=== PATIENT | male | born 1970 | race Caucasian/White ===

== ENCOUNTER 2017-10-12 08:00 | Inpatient (IN) | payer OTHER ==
[2017-10-13 10:04] VITALS: BMI 41.0
--- NOTE | 2017-10-14 10:29 | HP ---
Admitting History and Physical - Admission Chief Complaint: Morbid obesity History Source: Patient Limitations to Obtaining History: No Limitations - Smoking History Smoking history: Former smoker Have you smoked in the past 12 months: No If you are a former smoker, when did you quit?: 15yrs - Alcohol/Substance Use Hx Alcohol Use: Yes (wine occs) Home Medications - Allergies Allergies/Adverse Reactions: Allergies Allergy/AdvReac Type Severity Reaction Status Date / Time No Known Drug Allergies Allergy Verified 10/14/17 09:47 - Home Medications Home Medications: Ambulatory Orders NK [No Known Home Medication] 10/13/17 Family Disease History - Family Disease History Family History: Denies Review of Systems - Review of Systems Constitutional: denies: Chills, Fever HENT: reports: No Symptoms Neck: reports: No Symptoms Cardiovascular: reports: No Symptoms Respiratory: reports: No Symptoms Gastrointestinal: reports: No Symptoms Neurological: reports: No Symptoms Pain Intensity: 0 Physical Examination Vital Signs: Vital Signs Temperature 97.7 F 10/14/17 09:46 Pulse Rate 72 10/14/17 09:46 Respiratory Rate 16 10/14/17 09:46 Blood Pressure 142/74 10/14/17 09:46 O2 Sat by Pulse Oximetry (%) 98 10/14/17 09:45 Constitutional: Yes: Well Nourished HENT: Yes: WNL Neck: Yes: WNL Respiratory: Yes: Regular Gastrointestinal: Yes: Soft, Abdomen, Obese Extremities: Yes: WNL Neurological: Yes: Alert, Oriented Problem List - Problems (1) Morbid obesity due to excess calories Code(s): E66.01 - MORBID (SEVERE) OBESITY DUE TO EXCESS CALORIES Assessment/Plan Laparoscopic possible open vertical sleeve gastrectomy possible wedge liver biopsy, EGD
[2017-10-14] MEDS ORDERED: ceFAZolin SODIUM 1 GM VIAL IVPB ONE (11:10)
[2017-10-14] MEDS ORDERED: BUPIVACAINE HCL/PF (5 MG/ML) 30 ML VIAL IJ ONE ×2 (11:26→12:22)
[2017-10-14] MEDS ORDERED: ONDANSETRON 4 MG/2 ML VIAL IVPUSH PRN (12:34)
[2017-10-14] MEDS ORDERED: LACTATED RINGERS SOLUTION 1,000 ML IV SCH (12:45)
[2017-10-14] MEDS ORDERED: HYDROmorphone HCL CARPU-JECT 1 MG/1 ML DISP.SYRIN IVPB PRN (12:51)
--- NOTE | 2017-10-14 12:51 | SURG ---
Surgery Drywall Finishing Foreman Note Drywall Finishing Foreman: Arnel Resendez PA-C Date of Service: 10/14/17 Diagnosis: Morbid obesity secondary to excess caloric intake Procedure: Laprascopic sleeve gastrectomy, liver bx, egd 10/14 I was present for the entirety of the operative procedure. For further detail, please refer to operative report. Visit type - Case Type Case Type: Scheduled - New patient This patient is new to me today: Yes Date on this admission: 10/14/17
--- NOTE | 2017-10-14 12:51 | OP ---
Operative Note - Note: Operative Date: 10/14/17 Pre-Operative Diagnosis: Morbid obesity secondary to excess caloric intake Operation: Laprascopic sleeve gastrectomy, liver bx, egd 10/14 Post-Operative Diagnosis: Same as Pre-op Surgeon: Markos Ruelas Bottom Wheeler: Arnel Resendez Anesthesiologist/ANIMAL GROOMER: Shira Beal Anesthesia: General Specimens Removed: Greater curvature of stomach and liver biopsy Estimated Blood Loss (mls): 30 Fluid Volume Replaced (mls): 900 Operative Report Dictated: Yes
[2017-10-14] MEDS: ONDANSETRON 4 MG/2 ML VIAL IVPUSH SCH ×3 (12:52→21:58)
[2017-10-14] MEDS: METOCLOPRAMIDE HCL INJECTION 10 MG/2 ML VIAL IVPUSH SCH ×2 (12:55→19:55)
[2017-10-14] MEDS: ACETAMINOPHEN 1000 MG/100 ML VIAL (NON FORMULARY) IVPB SCH ×2 (13:00→19:54)
[2017-10-14] MEDS ORDERED: morphine CARPU-JECT 4 MG/1 ML DISP.SYRIN IVPUSH PRN (13:33)
[2017-10-14 14:01] LABS: HEMATOCRIT 41.3 % (35.4-49); HEMOGLOBIN 13.7 GM/dL (11.7-16.9); MCH 29.1 pg (25.7-33.7); MCHC 33.3 g/dl (32.0-35.9); MEAN CELL VOLUME 87.4 fl (80-96); MEAN PLT VOLUME 7.9 fl (7.5-11.1); PLATELET COUNT 249 K/MM3 (134-434); RBC 4.73 M/mm3 (4.00-5.60); RDW 13.5 % (11.9-15.9); WHITE BLOOD COUNT 18.2 K/mm3 (4.0-10.0)
[2017-10-14 14:34] LABS: ALBUMIN 3.5 g/dl (3.4-5.0); ANION GAP 10 (8-16); BILIRUBIN,TOTAL 0.4 mg/dL (0.2-1.0); BLOOD UREA NITROGEN 21 mg/dL (7-18); CALCIUM 8.3 mg/dL (8.5-10.1); CHLORIDE 106 mmol/L (98-107); CO2 24 mmol/L (21-32); CREATININE 0.8 mg/dL (0.7-1.3); GLUCOSE,RANDOM 155 mg/dL (74-106); POTASSIUM 3.9 mmol/L (3.5-5.1); SGOT/AST 183 U/L (15-37); SGPT/ALT 243 U/L (12-78); SODIUM 140 mmol/L (136-145); TOT PROT 6.9 g/dl (6.4-8.2)
[2017-10-14 14:35] LABS: ALK PHOS 56 U/L (45-117)
[2017-10-14] MEDS: SODIUM CHLORIDE 1,000 ML IV SCH ×2 (15:45→16:49)
--- NOTE | 2017-10-14 16:20 | SPEC ---
DATE OF OPERATION: 10/14/2017 SURGEON: Markos Ruelas MD EKG MONITOR TECH: RAFFAELE Reed PREOPERATIVE DIAGNOSIS: 1. Morbid obesity. 2. Sleep apnea. 3. Body mass index of 41.0. POSTOPERATIVE DIAGNOSIS: 1. Morbid obesity. 2. Sleep apnea. 3. Body mass index of 41.0. 4. Hepatomegaly. PROCEDURE: 1. Laparoscopic vertical sleeve gastrectomy. 2. Laparoscopic wedge liver biopsy. 3. Esophagogastroduodenoscopy. SPECIMEN: 1. Greater curvature of the stomach. 2. Wedge liver biopsy. ESTIMATED BLOOD LOSS: 30 mL. DRAINS: None. ANESTHESIA: GET. BOUGIE SIZE: A 36-Greek. REASON FOR PROCEDURE: This is a 47-year-old gentleman who presents to the office for weight loss options. After describing the different options, he decided to proceed with a laparoscopic, possible open vertical sleeve gastrectomy, possible liver biopsy, and upper endoscopy. RISKS AND BENEFITS: After describing the different options for weight loss management, the patient decided to proceed with a laparoscopic, possible open vertical sleeve gastrectomy. The patient was seen by the respective subspecialties and cleared for surgery. The risks and benefits of the procedure were explained. These included bleeding, infection, hernia, CO, DVT, PE, injury to surrounding structures including the liver, colon, bowel, spleen, esophagus, vessel injury, nerve injury, weight regain, gastric leak, staple line leak, sleeve leak, obstruction, vitamin deficiency, hair loss and as some of the possible complications. The patient understood and signed informed consent. DESCRIPTION OF PROCEDURE: The patient was placed supine on the operating room table. The patient underwent general endotracheal intubation. The arms were brought out at 90 degrees and secured. A footboard was placed and the legs were secured laterally with padding. The abdomen was prepped and draped in the usual sterile fashion. A timeout was performed. An incision was made in the left upper quadrant and a Veress needle inserted. Pneumoperitoneum was established. Subsequently, the Veress needle was removed and a 5-mm trocar was placed under direct visualization with the laparoscope. The laparoscopic camera was then inserted and inspection of the abdominal cavity was performed. An incision was then made in the supraumbilical area and a 15-mm trocar was placed under direct visualization. A 5-mm trocar was then placed in the right upper quadrant and a 5-mm trocar was placed below the left subcostal margin. A stab wound was made in the subxiphoid area and a Laury clamp inserted and removed to dilate the tract. A Frank liver retractor was inserted. The post was secured at the bedside by the nursing staff. The patient was placed in steep reverse Trendelenburg position and the Frank liver retractor was used to secure the liver towards the anterior abdominal wall. The pylorus was identified and 6 cm proximal to it, the lesser sac was entered using the LigaSure device. All lateral attachments to the greater curvature of the stomach, including the short gastric vessels, were ligated using the LigaSure device toward the gastrosplenic and gastrophrenic ligaments. Once this was done in its entirety, it was confirmed that all tubes within the nasal or oropharyngeal cavity, including a temperature probe, was removed by Anesthesia. The bougie was then inserted by Anesthesia. Transection of the stomach was then begun staying adjacent to the bougie but away from the angularis. Transection of the stomach was performed near the portion of the stomach where the lesser sac was entered. Two laparoscopic Endo-ANDRES black camryn were used at this location. Laparoscopic Endo ANDRES purple staple loads were then used for the remainder of the transection until the greater curvature of the stomach was fully transected. This was done staying close to the bougie. Care was taken to stay away from the angle of His cephalad. The staple line was then inspected. Hemostasis was identified. A leak test was then performed. It was clamped distally to the staple line. Irrigation solution was placed in the left upper quadrant and air was insufflated by Anesthesia into the sleeve. No leaks were identified. No obstruction was identified. This was done through the entirety of the staple line. In addition, an upper endoscopy was performed. The endoscope was placed into the patients mouth and the entirety of the esophagus, GE junction, gastric pouch and staple line were inspected. No obstruction or leak was noted. The stomach was suctioned and the endoscope removed fully intact. At this point, the irrigation solution was suctioned and again, hemostasis was noted. A wedge liver biopsy was then performed. The left lobe of the liver was identified and a portion of the edge was grasped. Using electrocautery, a wedge of the liver was excised. This was removed and sent off the field as specimen. Hemostasis at the site of the wedge liver biopsy was attained using electrocautery. The 15-mm supraumbilical trocar was then removed and the greater curvature specimen removed from the site using a sponge stick liu. The specimen was inspected and a Veress needle inserted. The specimen insufflated adequately and no leak was identified. The staple line was noted to be intact. A Rio-Harper device was then used to close the fascia with a 0 Vicryl suture at the site. Again, hemostasis was noted. The Frank liver retractor was then removed under direct visualization. Pneumoperitoneum was desufflated and the fascial sutures were secured. Hemostasis was noted at all incision sites and Marcaine was injected at all incision sites. All incision sites were closed using 4-0 Biosyn. Sterile dressings were applied. The patient tolerated the procedure well and was transferred to the recovery room in stable condition. The patient was transferred to telemetry for further monitoring. Gabriela SANDERS/[id number]
[2017-10-14] MEDS: morphine SULFATE 4 MG/ML VIAL IVPUSH PRN ×2 (17:32→23:20)
[2017-10-14] MEDS: ENOXAPARIN NA (PORCINE) 40 MG/0.4 ML DISP.SYRIN SQ SCH (21:58)
[2017-10-14] MEDS: FAMOTIDINE 20 MG/50 ML IVPB 20 MG/50 ML MG IVPB SCH (21:58)
[2017-10-15] MEDS: METOCLOPRAMIDE HCL INJECTION 10 MG/2 ML VIAL IVPUSH SCH ×3 (01:13→14:07)
[2017-10-15] MEDS: ONDANSETRON 4 MG/2 ML VIAL IVPUSH SCH ×4 (01:13→14:06)
[2017-10-15] MEDS: ACETAMINOPHEN 1000 MG/100 ML VIAL (NON FORMULARY) IVPB SCH ×2 (01:13→06:32)
[2017-10-15] MEDS: morphine SULFATE 4 MG/ML VIAL IVPUSH PRN (06:35)
--- NOTE | 2017-10-15 07:40 | PN ---
Progress Note (short form) - Note Progress Note: 47yo M s/p lap gastric sleeve POD 1, pt seen at bedside. Pt states feeling well , only mild abd pain. Denies fever, chills, n/v, diarrhea. Pt is ambulating and urinating well. Last Vital Signs Temp Pulse Resp BP Pulse Ox 98.8 F 84 18 146/94 98 10/15/17 06:00 10/15/17 06:00 10/15/17 06:00 10/15/17 06:00 10/14/17 21:00 PE: Gen: A&O x3 Resp: breathing comfortably Abd: soft, nontender, nondistended, incisions are clean with no erythema or discharge Ext: no edema <Francis Allen - Last Filed: 10/15/17 11:15> - Note Progress Note: Agree POD 1 Pain controlled No nausea AVSS Abd soft CBC, BMP 10/15/17 06:00 10/15/17 06:00 UGI: no leak/obstruction Clears Discharge home <Markos Ruelas - Last Filed: 10/15/17 15:59> Problem List - Problems (1) Morbid obesity due to excess calories Assessment/Plan: Plan -Upper GI shows no leak will advance diet to Bariatric stage 1 -OOB/ambulate -DVT ppx -will consider discharge home today if pt tolerating PO and pain controlled. Code(s): E66.01 - MORBID (SEVERE) OBESITY DUE TO EXCESS CALORIES <Francis Allen - Last Filed: 10/15/17 11:15> - Problems (1) Morbid obesity due to excess calories Code(s): E66.01 - MORBID (SEVERE) OBESITY DUE TO EXCESS CALORIES <Markos Ruelas - Last Filed: 10/15/17 15:59>
[2017-10-15 07:46] LABS: HEMOGLOBIN 13.6 GM/dL (11.7-16.9); MCH 29.3 pg (25.7-33.7); MCHC 34.1 g/dl (32.0-35.9); PLATELET COUNT 254 K/MM3 (134-434); RBC 4.65 M/mm3 (4.00-5.60); RDW 13.6 % (11.9-15.9); WHITE BLOOD COUNT 11.2 K/mm3 (4.0-10.0)
[2017-10-15 08:11] LABS: CHLORIDE 103 mmol/L (98-107); POTASSIUM 3.7 mmol/L (3.5-5.1); SODIUM 138 mmol/L (136-145)
[2017-10-15 08:30] LABS: ALBUMIN 3.4 g/dl (3.4-5.0); ALK PHOS 54 U/L (45-117); ANION GAP 10 (8-16); BILIRUBIN,TOTAL 0.6 mg/dL (0.2-1.0); BLOOD UREA NITROGEN 11 mg/dL (7-18); CALCIUM 8.5 mg/dL (8.5-10.1); CO2 25 mmol/L (21-32); CREATININE 0.7 mg/dL (0.7-1.3); GLUCOSE,RANDOM 108 mg/dL (74-106); SGOT/AST 100 U/L (15-37); SGPT/ALT 195 U/L (12-78)
[2017-10-15] MEDS: FAMOTIDINE 20 MG/50 ML IVPB 20 MG/50 ML MG IVPB SCH (09:43)
[2017-10-15] MEDS: ENOXAPARIN NA (PORCINE) 40 MG/0.4 ML DISP.SYRIN SQ SCH (09:43)
[2017-10-15] MEDS ORDERED: SODIUM CHLORIDE 1,000 ML IV SCH (11:15)
[2017-10-15] MEDS: oxyCODONE HCL 5 MG TABLET PO PRN ×2 (11:44→15:49)
--- NOTE | 2017-10-15 15:36 | PATH ---
Surgical Pathology Report Patient Name: CRISTELA QUIROGA [facility]. Rec. #: [id number] /Age/Gender: 1970 (Age: 47) / M Account: [id number] Location: 4 W TELEMETRY U Taken: 10/14/2017 Received: 10/14/2017 Reported: 10/15/2017 Physicians: Markos Ruelas M.D. Specimen(s) Received A: GREATER CURVATURE STOMACH B: LIVER BIOPSY Clinical History Morbid obesity Final Diagnosis A. STOMACH, GREATER CURVATURE, LAPAROSCOPIC VERTICAL SLEEVE GASTRECTOMY: PORTION OF STOMACH WITH MILD CHRONIC GASTRITIS. IMMUNOHISTOCHEMICAL STAIN FOR H. PYLORI IS NEGATIVE. B. LIVER, BIOPSY: MODERATE STEATOSIS (~50%). NO INCREASE IN IRON AND FIBROSIS ON PERFORMED SPECIAL STAINS (IRON AND TRICHROME). Comment: Subcapsular biopsy. Electronically Signed Gill Nettles M.D. Gross Description A. Received in formalin, labeled "greater curvature of stomach," is 20 x 4 x 4 cm. portion of stomach with a stapled margin of resection. The serosa is man-herrera with minimal attached fat. The mucosa is man-pink with normal folds. No mucosal masses are identified. Senior Gl Accountant sections are submitted in one cassette. B. Received in formalin labeled "liver biopsy" is a man friable liver tissue measuring 2 x 1 x 1 cm. Entire specimen is submitted in one cassette. LUCIA/10/14/2017 kasi/10/14/2017
--- NOTE | 2017-10-15 16:21 | CON.CARD ---
Consult Consult Specialty:: Cardiology Reason for Consultation:: HTN - History of Present Illness History of Present Illness: 47 M with no prior history of DM or HTN no cardiac history was admitted for elective sleeve gastrectomy and is POD 1 without complications. Immediate post op vitals notable for hypertension which improved after pain therapy. Has no dyspnea, chest pain, edema, palpitations Telementry showed NSR. - History Source History Provided By: Patient Limitations to Obtaining History: No Limitations - Alcohol/Substance Use Hx Alcohol Use: Yes (wine occs) - Smoking History Smoking history: Former smoker Have you smoked in the past 12 months: No If you are a former smoker, when did you quit?: 15yrs Home Medications - Allergies Allergies/Adverse Reactions: Allergies Allergy/AdvReac Type Severity Reaction Status Date / Time No Known Drug Allergies Allergy Verified 10/14/17 09:47 - Home Medications Home Medications: Ambulatory Orders Famotidine [Pepcid] 20 mg PO BID #60 tablet 10/14/17 Oxycodone HCl/Acetaminophen [Percocet 5-325 mg Tablet] 1 - 2 tab PO Q6H #28 tab MDD 4 10/14/17 Review of Systems - Review of Systems Constitutional: reports: No Symptoms Eyes: reports: No Symptoms HENT: reports: No Symptoms Neck: reports: No Symptoms Cardiovascular: reports: No Symptoms Respiratory: reports: No Symptoms Gastrointestinal: reports: Abdominal Pain Musculoskeletal: reports: No Symptoms Vital Signs: Vital Signs Temperature 98.2 F 10/15/17 09:20 Pulse Rate 86 10/15/17 09:20 Respiratory Rate 14 10/15/17 09:20 Blood Pressure 134/74 10/15/17 09:20 O2 Sat by Pulse Oximetry (%) 98 10/15/17 09:00 Constitutional: Yes: Well Nourished, Obese Eyes: Yes: Conjunctiva Clear, EOM Intact HENT: Yes: Atraumatic, Normocephalic Neck: Yes: Supple, Trachea Midline Respiratory: Yes: Regular, CTA Bilaterally Gastrointestinal: Yes: Normal Bowel Sounds, Soft Cardiovascular: Yes: Regular Rate and Rhythm JVD: No Carotid Bruit: No Heart Sounds: Yes: S1, S2 Murmur: No: Systolic Murmur, Diastolic Murmur Edema: No - Other Data Labs, Other Data: CBC, BMP 10/15/17 06:00 06/15/18 06:00 Problem List - Problems (1) Morbid obesity due to excess calories Code(s): E66.01 - MORBID (SEVERE) OBESITY DUE TO EXCESS CALORIES Assessment/Plan 47 yo M with obesity sp gastrectomy. No history of hypertension prior to operation. His BP is mildly elevated likely related to pain and expect improvement with healing. Given expected weight loss which can also improve BP, would not advise antihypertensive treatment at this time. Please reconsult as needed.
[2017-10-15 17:46] VITALS: BP 140/76; PULSE 68; TEMP 98.6
== END 2017-10-15 19:08 | disposition home or self-care (01) | DRG 621 ==
LOC: EDSTATUS 08:00 → JSAMEDAYSX 10-14 08:00 → J4W 10-14 15:54
PROVIDERS: ADMIT Surgery; ATTEND Surgery
PROC: 0DJ08ZZ Inspection of Upper Intestinal Tract, Via Natural or Artificial Opening Endoscopic (ICD-10-PCS; 2017-10-14)
PROC: 0DB64Z3 Excision of Stomach, Percutaneous Endoscopic Approach, Vertical (ICD-10-PCS; principal; 2017-10-14 10:00)
PROC: 0FB04ZX Excision of Liver, Percutaneous Endoscopic Approach, Diagnostic (ICD-10-PCS; 2017-10-14 10:00)
DX: E66.01 Morbid (severe) obesity due to excess calories (principal); Z68.41 Body mass index [BMI] 40.0-44.9, adult; R16.0 Hepatomegaly, not elsewhere classified; G47.30 Sleep apnea, unspecified; Z87.891 Personal history of nicotine dependence
CPT/HCPCS: 36415; 74241-TC-FY; 80053; 85027; 86850; 86900; 86901; 88307-TC; 94760; J0131; J7030